=== PATIENT | female | born 1945 | race Caucasian/White ===

== ENCOUNTER → 2018-12-08 | Outpatient (CLI) | payer OTHER ==
[~2018-12-08] MED LIST: AROMASIN25 MG PO; ASTELIN30 ML NS; CALCIUM +D & M1 EACH PO; CENTRUM SILVER1 EAC1 PO; NORCO 5-325 TA1 EACH PO; PROPRANOLOL PO; RHINOCORT AQUA8.6 GM NS; ZOLOFT
== END ==
LOC: RAD 11:53
DX: R05 Cough (principal); Z87.81 Personal history of (healed) traumatic fracture